=== PATIENT | male | born 1995 | race Caucasian/White ===

== ENCOUNTER 2022-01-23 20:06 | Emergency (ER) | payer MEDICAID ==
[~2022-01-23] VITALS: Ht 180.3 cm; Wt 92.1 kg
[2022-01-23 20:44] VITALS: BP 110/71
--- NOTE | 2022-01-23 20:50 | NUR ---
PT AMBULATED TO BED #1
--- NOTE | 2022-01-23 21:36 | NUR ---
DR. ENGLISH AT BEDSIDE FOR EVALUATION
--- NOTE | 2022-01-24 02:28 | NUR ---
COVERING CAN TORIBIO FOR LUNCH. PT APPEARS TO BED RESTING. EQUAL RISE AND FALL OF CHEST WALL. VSS. PT IN STABLE CONDITION. ALL NEEDS MET AT THIS TIME.
--- NOTE | 2022-01-24 03:40 | NUR ---
Patient discharged with v/s stable. Written and verbal after care instructions given and explained. Patient verbalized understanding. Ambulatory with steady gait. All questions addressed prior to discharge. Advised to follow up with PMD. VSS, A/OX4, AMBULATORY, UNLABORED BREATHING, AND CALM DEMEANOR. PT RECIEVED MEAL.
[2022-01-24 03:44] VITALS: BP 105/61
== END 2022-01-24 03:40 | disposition home or self-care (01) ==
LOC: MED 20:06
DX: F10.129 Alcohol abuse with intoxication, unspecified (principal)
CPT/HCPCS: 93005; 99283